=== PATIENT | female | born 1980 | race Caucasian/White ===

== ENCOUNTER → 2021-09-18 | Outpatient (CLI) | payer OTHER ==
[2021-09-18 11:00] LABS: HEMOGLOBIN 12.6 gm/dl (12.3-15.3); RED BLOOD COUNT 4.29 M/UL (4.00-5.10); WHITE BLOOD COUNT 7.7 K/UL (4.5-11.0)
[2021-09-18 11:32] LABS: BUN/CREATININE RATIO 21 (0-10)
== END ==
LOC: RAD 09:42
PROVIDERS: Nurse Practitioner
DX: R05.3 Chronic cough (principal); F17.210 Nicotine dependence, cigarettes, uncomplicated; R53.83 Other fatigue
CPT/HCPCS: 36415; 71046; 80053; 85025